=== PATIENT | male | born 1995 | race Caucasian/White ===

== ENCOUNTER 2017-01-02 22:16 | Emergency (ER) | payer OTHER ==
[~2017-01-02] VITALS: Ht 167.6 cm; Wt 72.6 kg
[2017-01-02] MEDS ORDERED: AZITHROMYCIN 250 MG TAB PO ONE (23:15)
[2017-01-02] MEDS ORDERED: cefTRIAXone SOD 1 GM VIAL (J0696) IM ONE (23:15)
[2017-01-02 23:58] VITALS: BP 140/74
== END 2017-01-02 23:58 | disposition home or self-care (01) ==
LOC: M ED 22:44
DX: A56.8 Sexually transmitted chlamydial infection of other sites (principal)
CPT/HCPCS: 81001; 87491; 87591; 96372; 99282; J0696